=== PATIENT | male | born 1950 | race Caucasian/White ===

== ENCOUNTER → 2017-07-23 07:38 | Outpatient (CLI) | payer MEDICARE ==
--- NOTE | ~2017-07-23 | HEMODYNAMI ---
PATIENT:NORY MANCIA MEDICAL RECORD: [id number] : 50 LOCATION:[facility] ADMISSION DATE: 07/23/17 Generatedon:07/23/20179:59 Patient name: NORY MANCIA Patient #: [id number] SSN: DO B: 1950 Date of study: 07/23/2017 Page: Of Hemodynamic Procedure Report Patient Data Patient Demographics Procedure consent was obtained First Name: NORY Gender: Male Last Name: BLANCHE : 1950 [facility] Initial: JULIANA Age: 67 year(s) Patient #: [id number] Race: Additional ID: [id number] Contact details [address]: [address] [place] [address] State: [place] City: [place] Zip code: [address] Past Medical History Allergies Allergen Reaction Date Comments Reported Penicillins 12/30/2014 Other allergy 12/30/2014 Vicodin Other allergy 07/23/2017 PCN Admission Admission Data Admission Date: 07/23/2017 Admission Time: 7:38 Lab Results Lab Result Date: 07/23/2017 Lab Result Time: 0:00 Biochemistry Name Units Result Min Max BUN mg/dl 16 --(---*)-- 7 18 Creatinine mg/dl 1.1 --(--*-)-- 0.6 1.3 CBC Name Units Result Min Max Hemoglobin g/dl 14.8 --(-*--)-- 13.5 17.5 Procedure Procedure Types Cath Procedure Diagnostic Procedure LHC LHC w/Coronaries Miscellaneous Procedures Moderate Sedation up to 15 minutes Peripheral Cath Diagnostic Procedure Cath Peripheral Four Vessel Arteriogram Procedure Description Procedure Date Procedure Date: 07/23/2017 Procedure Start Time: 9:46 Procedure End Time: 9:57 Procedure Staff Name Function Chaim Baker RT Plastic Technician Yarely Bright RT Scrub Cam Ibanez RN Nurse Konrad Durbin MD Performing Physician Hyun Peacock RT Monitor Procedure Data Cath Procedure Fluoroscopy Diagnostic fluoroscopy Total fluoroscopy Time: 2.3 time: 2.3 min min Diagnostic fluoroscopy Total fluoroscopy dose: dose: 1001 mGy 1001 mGy Contrast Material Contrast Material Type Amount (ml) Isovue 300 104 Entry Location Entry Primary Successful Side Size Upsize Upsize Entry Closure Succes sful Closure Location (Fr) 1 (Fr) 2 (Fr) Remarks Device Remarks Femoral Right 5 Fr Exoseal artery Estimated blood loss: 10 ml Diagnostic catheters Device Type Used For End Catheter Placement Cordis 5Fr Pigtail Procedure Catheter (MP) Cordis 5Fr JL 4.0 Procedure Catheter (MP) Cordis 5Fr 3DRC Catheter Procedure (MP) Procedure Complications No complications Procedure Medications Medication Administration Route Dosage Oxygen NC 2 l/min Heparin Flush Bag added to field 2 bags (1000units/500ml NS) 0.9% NaCl I.V. 100 ml/hr Fentanyl I.V. 50 mcg Versed I.V. 1 mg Fentanyl I.V. 50 mcg Versed I.V. 1 mg Fentanyl I.V. 50 mcg Fentanyl I.V. 50 mcg Hemodynamics Rest HGB: 14.8 (g/dl) Heart Rate: 50 (bpm) Snapshots Pre Cath Intra NCS Post Cath Vital Signs Time Heart Resp SPO2 etCO2 NIBP (mmHg) Rhythm Pain Sedation Rate (ipm) (%) (mmHg) Status Level (bpm) 9:26:41 45 20 96 0 150/79(126) NSR 0 (11) 10(A) , No pain 9:32:03 47 18 97 30.2 143/78(110) NSR 0 (11) 10(A) , No pain 9:36:08 48 19 96 25.6 127/82(95) NSR 0 (11) 10(A) , No pain 9:40:20 49 17 97 27.2 115/74(88) NSR 0 (11) 10(A) , No pain 9:44:30 49 16 97 21.9 118/72(90) NSR 0 (11) 10(A) , No pain 9:48:42 51 14 94 37.7 113/70(85) NSR 0 (11) 9(A) , No pain 9:52:50 56 20 96 0 121/73(89) NSR 0 (11) 9(A) , No pain 9:56:25 53 18 95 34 121/70(82) NSR 0 (11) 9(A) , No pain Medications Time Medication Route Dose Verified Delivered Reason Notes Effect iveness by by 9:36:24 Oxygen NC 2 Konrad Levy Per l/min Ramakrishna Ibanez RN physician 9:36:33 Heparin Flush added 2 Konrad Levy used for Bag to bags Ramakrishna Ibanez american sign language teacher (1000units/500ml field NS) 9:36:42 0.9% NaCl I.V. 100 Konrad Levy Per ml/hr Ramakrishna Ibanez RN physician 9:44:10 Fentanyl I.V. 50 Konrad Cam for [facility] [place] Ramakrishna Ibanez RN sedation 9:44:16 Versed I.V. 1 mg Konrad Zuritay for Ramakrishna Ibanez RN sedation 9:45:59 Fentanyl I.V. 50 Konrad Cam for philip Ibanez RN sedation 9:46:04 Versed I.V. 1 mg Konrad Zuritay for Ramakrishna Ibanez RN sedation 9:48:19 Fentanyl I.V. 50 Konrad Zuritay for philip Ibanez RN sedation 9:50:47 Fentanyl I.V. 50 Konrad Cam for [facility] [place] Ramakrishna Ibanez RN sedation Procedure Log Time Note 9:11:11 Chaim Baker RT(R) sent for patient. Start room use. 9:16:13 Time tracking: Regular hours 9:16:16 Plan of Care:Hemodynamics will remain stable., Cardiac rhythm will remain stable., Comfort level will be maintained., Respiratory function will remain adequate., Patient/ family verbilizes understanding of procedure., Procedure tolerated without complication., Recovers from procedure without complications.. 9:22:04 Patient received from Pre/Post Procedure Room to CCL 2 Alert and oriented. Tansferred to table in Supine position. 9:22:05 Warm blankets applied, and darlin hugger turned on for patient comfort. 9:22:06 Correct patient and procedure confirmed by team. 9:22:07 ECG and BP/O2 sat monitors applied to patient. 9:22:07 Signed procedure consent form obtained from patient. 9:25:31 Vital chart was started 9:29:46 Baseline sample Acquired. 9:29:53 Rhythm: sinus rhythm 9:29:56 Full Disclosure recording started 9:30:05 H&P Date Dictated: 07/17/2017 Within 30 days and on chart., H&P Addendum completed by physician on day of procedure. (MUST COMPLETE FOR ALL OUTPATIENTS). 9:30:07 Pre-procedure instructions explained to patient. 9:30:09 Family in waiting room. 9:30:11 Patient NPO since Midnight. 9:30:23 Patient allergic to Other allergyPCN 9:30:26 Is the patient allergic to Iodine/contrast media? No. 9:30:31 Is patient on blood thinner?Yes 9:30:33 ACC The patient was administered the following blood thiners within the last 24 hours: ACCPlavix 9:30:49 Patient diabetic? No. 9:30:57 Snore? Yes 9:31:00 Sleep apnea? Yes 9:31:13 Patient pain scale 0/10 ?. 9:31:34 IV patent on arrival in left hand with 0.9% NaCl at [facility]. 9:32:18 Lab Result : Hemoglobin 14.8 g/dl 9:32:18 Lab Result : Creatinine 1.1 mg/dl 9:32:18 Lab Result : BUN 16 mg/dl 9:32:23 Lab results completed and on chart. 9:32:29 Right groin area was prepped with chlora-prep and draped in sterile fashion 9:32:30 Alarms reviewed by R. N. 9:32:32 Sharps counted by scrub and verified by R.N. 9:32:34 Physician paged 9:36:22 Zero performed for pressure channel P1 9:36:24 Oxygen 2 l/min NC was administered by Cam Ibanez RN; Per physician; 9:36:27 Zero performed for pressure channel P1 9:36:33 Heparin Flush Bag (1000units/500ml NS) 2 bags added to field was administered by Cam Ibanez RN; used for procedure; 9:36:42 0.9% NaCl 100 ml/hr I.V. was administered by Cam Ibanez RN; Per physician; 9:43:31 Physician arrived 9:43:47 --------ALL STOP TIME OUT------ 9:43:48 Final Timeout: patient, procedure, and site verified with staff and physician. All members of the team are in agreement. 9:43:51 Right groin site verified by team. 9:43:56 Sedation plan: IV Moderate Sedation Versed, Fentanyl 9:44:10 Use device set Femoral Dx 9:44:10 Fentanyl 50 mcg I.V. was administered by Cam Ibanez RN; for sedation; 9:44:12 Bag Decanter opened to sterile field. 9:44:12 Acist Syringe opened to sterile field. 9:44:13 Terumo 5Fr Ramsey Sheath opened to sterile field. 9:44:13 Medline Cath Pack opened to sterile field. 9:44:14 [facility] [employer] 260cm J .035 wire opened to sterile field. 9:44:15 Acist Manifold opened to sterile field. 9:44:15 Acist Hand Control opened to sterile field. 9:44:16 Tegaderm 4 x 4 opened to sterile field. 9:44:16 Diagnostic Infinity 5Fr Multipack catheter opened to sterile field. 9:44:16 Versed 1 mg I.V. was administered by Cam Ibanez RN; for sedation; 9:45:57 Procedure started. 9:45:59 Fentanyl 50 mcg I.V. was administered by Cam Ibanez RN; for sedation; 9:46:01 Local anesthetic to right femoral artery with Lidocaine 2% by Konrad Durbin MD.INITIAL ACCESS ONLY 9:46:04 Versed 1 mg I.V. was administered by Cam Ibanez RN; for sedation; 9:46:26 A 5 Fr sheath was inserted into the Right Femoral artery 9:47:17 A Cordis 5Fr Pigtail Catheter (MP) was advanced over the wire and used for Procedure. 9:47:37 Catheter removed. 9:47:42 EF : 40 % 9:48:05 A Cordis 5Fr JL 4.0 Catheter (MP) was advanced over the wire and used for Procedure. 9:48:09 LCA angiography performed. 9:48:19 Fentanyl 50 mcg I.V. was administered by Cam Ibanez RN; for sedation; 9:49:39 Catheter removed. 9:49:46 A Cordis 5Fr 3DRC Catheter (MP) was advanced over the wire and used for Procedure. 9:50:13 RCA angiography performed. 9:50:47 Fentanyl 50 mcg I.V. was administered by Cam Ibanez RN; for sedation; 9:52:03 Right carotid angiography performed. 9:52:13 Left carotid angiography performed. 9:54:31 Catheter removed. 9:54:40 Cordis 5Fr Exoseal opened to sterile field. 9:54:56 Sheath removed intact; hemostasis achieved with Exoseal to the Right Femoral artery. 9:55:02 Procedure ended.(Physican Out) 9:55:07 Fluoroscopy time 02.30 minutes. 9:55:30 Fluoroscopy dose: 1001 mGy 9:55:30 Flurop Dose total: 1001 9:55:57 Contrast amount:Isovue 300 104ml. 9:56:00 Sharps counted by scrub and verified by R.N. 9:56:11 Insertion/operative site no bleeding no hematoma. 9:56:13 Post Procedure Pulses reassessed and unchanged 9:56:17 Post-procedure physical assessment completed. ASA score P 2 - A patient with mild systemic disease as per Konrad Durbin MD. 9:56:20 Post procedure rhythm: unchanged. 9:56:23 Estimated blood loss: 10 ml 9:56:26 Post procedure instruction explained to patient.Patient verbalizes understanding. 9:56:50 Procedure Complication : No complications 9:56:53 Vital chart was stopped 9:56:55 See physician's report for complete and final results. 9:56:58 Report given to Pre/Post Procedure Room. 9:57:01 Patient transfered to Pre/Post Procedure Room with Stretcher. 9:57:03 Full Disclosure recording stopped 9:57:03 Procedure ended. 9:57:06 End room use (Document Last) Device Usage Item Name Manufacture Quantity Catalog Hospital Part Current Minimal Lo t# / Number Charge Number Stock Stock Serial# Code Acist Acist 1 [id number] [id number] 203428 078728 20 Syringe [employer] Bag Microtek 1 [id number] 021179 60522 366531 5 Decanter [employer] Medline Cardinal 1 [id number] 933824 46296 471371 5 Snipi Terumo 5Fr Terumo 1 [id number] 991237 335262 [address] [facility] [employer] [facility] 1 [id number] 251409 717478 048234 30 260cm J .035 wire Acist Hand Acist 1 10993 781416 848429 120150 5 [employer] Inc Acist Acist 1 88479 988648 132561 640712 5 [employer] Diagnostic Cardinal 1 [id number] 023303 82413 707961 30 Infinity Health 5Fr Multipack catheter Tegaderm 4 3M 1 [id number] 546924 014329 593333 5 x 4 Cordis 5Fr Cardinal 1 [id number] 5 Pigtail Health Catheter (MP) Cordis 5Fr Cardinal 1 168756 5 JL 4.0 Health Catheter (MP) Cordis 5Fr Cardinal 1 869244 5 3DRC Health Catheter (MP) Cordis 5Fr Cardinal 1 [id number] 441313 000763 571958 10 L[facility] biNu Signature Audit Merrick Stage Time Signature Unsigned Intra-Procedure 07/23/2017 Hyun Peacock 9:59:01 AM RT(R) Signatures Monitor : Hyun Peacock Signature : RT Date : Time : [address] [address]
[~2017-07-23 07:38] MED LIST: ARICEPT10 MG PO; BAYER CHEWABLE81 MG PO; COREG12.5 MG PO; DOXYCYCLINE HY100 M2 PO; FIORICET W/CODE1 CA1 PO; FISH OIL 1,0001 CA1 PO; FLAGYL500 MG PO; FOLBEE PLUS TAB1 TAB PO; HYDROCHLOROTHIA25 MG PO; IMDUR60 MG PO; INDERAL 40 MG T40 MG PO; ISOSORBIDE DINI30 MG PO; ISOSORBIDE MONO30 M1 PO; KEPPRA500 MG PO; LOPRESSOR50 MG PO; MULTIPLE VITAMI1 TA1 PO; NAMENDA5 MG PO; NEURONTIN 100100 MG PO; NORCO 5/325 TAB1 TA1 PO; PAMELOR10 MG PO; PHENERGAN25 M1 PO; PLAVIX75 MG PO; PROTONIX40 MG PO; REMERON15 MG PO; RISPERDAL1 MG PO; VITAMIN B COMPL1 TA1 PO; VITAMIN B COMPL1 TAB PO; VOLTAREN75 MG PO; ZANTAC150 MG PO; ZANTAC300 MG PO; ZOCOR20 MG PO; ZOLOFT50 MG PO
[2017-07-23 08:00] VITALS: BP 155/86; BMI 25.0
[2017-07-23 08:23] LABS: EOSINOPHILS 2.8 % (0-7); HEMATOCRIT 44.6 % (42.0-54.0); HEMOGLOBIN 14.8 g/dL (13.5-17.5); IMMATURE GRANULOCYTES 0.3 % (0-5); LYMPHOCYTES 30.1 % (15-50); MCH 33.2 pg (26.0-34.0); MCHC 33.2 g/dL (31.0-37.0); MEAN PLATELET VOLUME 10.2 fL (7.4-10.4); NEUTROPHILS 49.8 % (40-80); PLATELET COUNT 203 10x3/uL (130-400); RBC 4.46 10x6/uL (4.20-6.10); RDW 12.7 % (11.5-14.5); WBC 6.8 10x3/uL (4.8-10.8)
[2017-07-23 08:24] LABS: ANION GAP 12.8 mmol/L (8-16); CALCIUM 9.5 mg/dL (8.5-10.1); CARBON DIOXIDE 28.4 mmol/L (21.0-32.0); CREATININE - SERUM 1.1 mg/dL (0.6-1.3); POTASSIUM - SERUM 4.2 mmol/L (3.5-5.1)
--- NOTE | 2017-07-23 10:17 | NUR ---
RECIEVED TO ROOM VIA STRETCHER FROM WOUND CARE RN WITH REPORTS OF A CLEAN CATH. NO INTERVENTION AT THIS TIME 5 FR EXOSEAL R/GROIN CDI NO BLEEDING NO HEMATOMA NOTED. VSS WITH CHEST PAIN DENIED INSTRUCTED PATIENT TO KEEP HEAD FLAT ON PILLOW WITH RLE STRAIGHT
--- NOTE | 2017-07-23 10:28 | NUR ---
VSS WITH PAIN DENIED 5 FR EXOSEAL R/GROIN CDI NO BLEEDING NO HEMATOMA NOTED SOFT TO TOUCH. PULSES PALPABLE
--- NOTE | 2017-07-23 10:48 | NUR ---
RESTING QUIETLY WITH EYES CLOSED. 5 FR EXOSEAL R/GROIN CDI NO BLEEDING NO HEMATOMA NOTED VSS
--- NOTE | 2017-07-23 11:40 | NUR ---
REPOSITIONED TO SITTING WITH HOB UP 30 DEGREES. CHEST PAIN IS DENIED VSS AND R/GROIN CDI PIV REMOVED WITH DRESSING APPLIED PATIENT UP TO GET DRESSED FOR DISCHARGE HOME
--- NOTE | 2017-07-23 12:16 | NUR ---
DR GREY AT BEDSIDE TALKING TO PATIENT AND BOTH VERBALIZED UNDERSTANDING. VERBAL AND WRITTEN DISCHARGE GONE OVER WITH APPOINTMENT FOR FOLLOW UP ON CHART. PATIENT DENIED CHEST PAIN WITH R/GROIN CDI NO DISTRESS NOTED PATIENT TRANSPORTED VIA WC TO PARKING FOR FAMILY TO DRIVE HOME
--- NOTE | 2017-08-01 14:14 | OP ---
PATIENT NAME: NORY MANCIA MEDICAL RECORD: [id number] :50 LOCATION:[facility] ADMISSION DATE: SURGEON: VIVIAN GREY MD DATE OF OPERATION: 07/23/2017 PROCEDURES: 1. Left heart catheterization. 2. Selective coronary angiography. 3. Left ventriculogram. 4. Four-vessel vertebral and carotid angiography. INDICATION: Angina, coronary artery disease, previous PTCA stent, carotid vascular disease, unsteady gait. PROCEDURE IN DETAIL: After informed consent was obtained and after a detailed explanation of risks, benefits as well as alternative therapies, the patient elected to proceed with angiogram and heart catheterization. The right femoral area was prepped and draped in normal sterile fashion. The right femoral artery was cannulated via modified Seldinger technique with placement of 5-Kinyarwanda sheath. All catheters were exchanged through this sheath. FINDINGS: 1. Carotid and vertebral angiography: There was subselection of each subclavian as well as the left carotid. 2. Right side: The common, internal, and external carotids have mild plaquing, none greater than 20% to 30%. No flow-limiting stenosis. Vertebral arteries devoid of disease. 3. Left system: The common, internal, and external carotids have mild plaquing, none greater than 20%, no flow-limiting stenosis. Vertebral arteries devoid of disease. 4. Left heart catheterization and left ventriculogram: Left ventriculogram was performed in standard 30-degree BANERJEE view and reveals good cardiac wall motion throughout all segments. Overall ejection fraction estimated at 60%. SELECTIVE CORONARY ANGIOGRAPHY: 1. Left main showed no significant angiographic disease. 2. Left anterior descending has previously placed stents. These are widely patent with no significant restenosis. No disease elsewise throughout the LAD or its branches. 3. Left circumflex shows moderate irregularities, but no flow-limiting stenosis. 4. Right coronary artery has previously placed stents with no significant restenosis. No disease elsewise throughout the RCA or its branches. OVERALL IMPRESSION: No significant restenosis of the previously placed stents, no disease elsewise. No significant carotid vascular disease. TRANSINT:[id number] Voice Confirmation ID: [id number] DOCUMENT ID: [id number] OPERATIVE REPORT [id number] MANCIA,JAMES VIVIAN QUINONES MD at 0596 CC: [id number] DICTATION DATE: 07/23/17 1004 ASTRONOMY INSTRUCTOR: 07/23/17 1145 DEP CLI 07/23/17 [address] [id number] [place] [address]
== END | disposition home or self-care (01) ==
LOC: D.CATH 07:38
PROVIDERS: Internal Medicine Interventional Cardiology
DX: I25.119 Atherosclerotic heart disease of native coronary artery with unspecified angina pectoris (principal); Z95.5 Presence of coronary angioplasty implant and graft; R26.81 Unsteadiness on feet; Z01.812 Encounter for preprocedural laboratory examination

== ENCOUNTER → 2021-02-23 10:30 | Outpatient (CLI) | payer MEDICARE ==
[2017-07-23 08:00] VITALS: BMI 25.0
== END | disposition home or self-care (01) ==
LOC: D.US 10:30
PROVIDERS: ATTEND Internal Medicine Cardiovascular Disease
DX: R42 Dizziness and giddiness (principal)

== ENCOUNTER → 2021-03-08 08:48 | Outpatient (CLI) | payer MEDICARE ==
[2017-07-23 08:00] VITALS: BMI 25.0
== END | disposition home or self-care (01) ==
LOC: D.HCCARDIO 08:48
PROVIDERS: ATTEND Internal Medicine Cardiovascular Disease
DX: I25.10 Atherosclerotic heart disease of native coronary artery without angina pectoris (principal)